=== PATIENT | male | born 1990 | race Caucasian/White ===

== ENCOUNTER 2021-10-01 09:25 | Emergency (ER) | payer OTHER | END 2021-10-01 09:57 | disposition home or self-care (01) | LOC: JD.ED 09:25 | DX: S16.1XXA Strain of muscle, fascia and tendon at neck level, initial encounter (principal); V89.2XXA Person injured in unspecified motor-vehicle accident, traffic, initial encounter; Y92.410 Unspecified street and highway as the place of occurrence of the external cause | CPT/HCPCS: 99283 ==